=== PATIENT | male | born 2000 | race Caucasian/White ===

== ENCOUNTER 2021-09-29 10:25 | Emergency (ER) | payer BC ==
[2021-09-29] MEDS ORDERED: Cortisporin Eye Drops OP ONE (10:47)
--- NOTE | 2021-09-29 10:52 | ERPHSYRPT ---
- History of Present Illness Time Seen by Provider: 09/29/21 10:48 Source: patient, family Exam Limitations: no limitations Patient Subjective Stated Complaint: Left eye injury Triage Nursing Assessment: Patient ambulated into ED and transferred self to bed. Patient A+O x3. Patient's skin pink, warm and dry. Patient complains of left eye injury. 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 Patient states he feels like something is in left eye. Scerla noted to bed red with eyelid swollen. A small particle noted in the color part of left eye. Physician History: Patient complains of left eye injury. 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 Patient states he feels like something is in left eye. Sclera noted to bed red with eyelid swollen. A small particle noted in the color part of left eye. Timing/Duration: yesterday Location: left eye Severity: mild Apparent Injury: no Associated Symptoms: pain, sensitivity to light, redness, foreign body se nsation, No eyelid swelling, No double vision Visual Assistive Devices: None Chemical Exposure: No Trauma: No Welding Arc/Tanning Bed Exposure: Yes Allergies/Adverse Reactions: cefaclor [From [facility]] Allergy (Verified 09/29/21 10:35) Home Medications: No Reportable Medications [No Reported Medications] 09/29/21 [History] Hx Influenza Vaccination/Date Given: No Hx Pneumococcal Vaccination/Date Given: No Immunizations Up to Date: Yes Travel Risk - International Travel Have you traveled outside of the country in past 3 weeks: No - Coronavirus Screening Are you exhibiting any of the following symptoms?: No Close contact with a COVID-19 positive Pt in past 14-21 Days: No - Vaccine Status Have you recieved a Covid-19 vaccination: No - Review of Systems Constitutional: No Symptoms Eyes: Eye Redness, Photophobia, Foreign Body Sensation Ears, Nose, & Throat: No Symptoms Respiratory: No Symptoms Cardiac: No Symptoms Abdominal/Gastrointestinal: No Symptoms Genitourinary Symptoms: No Symptoms Musculoskeletal: No Symptoms - Past Medical History Pertinent Past Medical History: No Neurological History: No Pertinent History ENT History: No Pertinent History Cardiac History: No Pertinent History Respiratory History: No Pertinent History Endocrine Medical History: No Pertinent History Musculoskeletal History: No Pertinent History GI Medical History: No Pertinent History History: No Pertinent History Psycho-Social History: No Pertinent History Male Reproductive Disorders: No Pertinent History - Past Surgical History Past Surgical History: No Neuro Surgical History: No Pertinent History Cardiac: No Pertinent History Respiratory: No Pertinent History Gastrointestinal: No Pertinent History Genitourinary: No Pertinent History Musculoskeletal: No Pertinent History Male Surgical History: No Pertinent History - Social History Smoking Status: Never smoker Exposure to second hand smoke: No Drug Use: none Patient Lives Alone: No - Nursing Vital Signs Nursing Vital Signs: Initial Vital Signs Temperature 97.9 F 09/29/21 10:36 Pulse Rate 82 09/29/21 10:36 Respiratory Rate 18 09/29/21 10:36 Blood Pressure 158/104 09/29/21 10:36 O2 Sat by Pulse Oximetry 98 09/29/21 10:36 Pain Scale Pain Intensity 0 - Physical Exam General Appearance: no apparent distress Vision Acuity Degree Evaluation Phase: Corrected Vision Acuity Right Eye: 20/30 Vision Acuity Left Eye: 20/70 Intraocular Pressure (Tonopen): left Eye Exam: left eye: corneal abrasion, bilateral eye: PERRL, EOMI Ears, Nose, Throat Exam: normal ENT inspection Neck Exam: normal inspection Respiratory Exam: normal breath sounds Cardiovascular Exam: regular rate/rhythm SpO2: 98 - Course Nursing assessment & vital signs reviewed: Yes - Progress Progress: unchanged Counseled pt/family regarding: diagnosis, need for follow-up - Departure Departure Disposition: Home Clinical Impression: Foreign body in cornea, left eye, initial encounter Condition: Stable Critical Care Time: No Instructions: Foreign Body in Eye (DC) Additional Instructions: Follow-up with your eye doctor on Friday. Use these eyedrops which has been provided to you every 4 hours. It is very important that you see your eye doctor on Friday without fail. Discharge/Care Plan ELAINA OVIEDO was seen on 09/29/21 in the Emergency Room. The patient was counseled regarding Diagnosis,Lab results, Imaging studies, need for follow up and when to return to the Emergency Room. Prescriptions given: Discharge Note I have spoken with the patient and/or caregivers. I have explained the patient's condition, diagnosis and treatment plan based on the information available to me at this time. I have answered the patient's and/or caregiver's questions and addressed any concerns. The patient and/or caregivers have as good understanding of the patient's diagnosis, condition and treatment plan as can be expected at this point. The vital signs have been stable. The patient's condition is stable and appropriate for discharge from the emergency department. The patient will pursue further outpatient evaluation with the primary care physician or other designated or consulting physician as outlined in the dis charge instructions. The patient and/or caregivers are agreeable to this plan of care and follow-up instructions have been explained in detail. The patient and/or caregivers have received these instruction. The patient/and or caregivers are aware that any significant change in condition or worsening of symptoms should prompt an immediate return to this or the closest emergency department or call 911. ELAINA OVIEDO was seen on 09/29/21 n the Emergency Room. At that time you were treated for an emergent condition, during your visit Laboratory, Radiology and/or other procedures may have been ordered. It is very important that you follow-up with your Primary Care Physician within the next 24-48 hours to review your Emergency Room visit and the final results of testing that was ordered. Some test results such as Urine Cultures, Blood Cultures, and other cultures if ordered will not be finalized for 24-48 hours. If you do not have a Primary Care Provider please call the medical records department at [phone] to obtain a copy of your results or you may sign into our patient portal to obtain these results by visiting us @ [email or web address] and completing the following steps: 1. Click on the Patient Portal link 2. Click the Patient Self Enrollment Link to complete the enrollment form and entering your 3. Once the enrollment form is completed you will receive an email with a temporary ID and password at the email address you provided. 4. Next choose a user name and password. Your user name must be at least 4 characters long and your password must be at least 4 characters long. 5. Choose a security question from the list and provide your answer to the question. If you already have signed into the Health Portal you may access your Health Care Information 18/11 by the following steps: 1. Login to our website @ [email or web address] 2. Enter your original user name and password. FAQS The [facility] Health Portal is an online tool that contains your Lab Results, Radiology Reports, Visit History, Discharge Instructions and Health Summary Lab and Radiology Results will not be available for 72 hours on the portal. The Portal is a secure site, passwords are encryted and URLs are re-written so they cannot be copied and pasted. You and authorized family members are the only ones who can access your Portal. Also there is a timeout feature that protects your information if you leave the Portal page open. If you have technical difficulty please use the Contact Us link on the page this will allow you to submit any questions you have regarding the Portal or you may contact the Medical Record Department at [phone] ext [phone]. Cortisporin eye drops 2 drops in left eye every 4 hours
[2021-09-29 11:03] VITALS: BP 158/104; PULSE 82; O2SAT 98
== END 2021-09-29 11:04 | disposition home or self-care (01) ==
LOC: ED 10:25
DX: T15.02XA Foreign body in cornea, left eye, initial encounter (principal); H53.142 Visual discomfort, left eye; Z28.310 Unvaccinated for COVID-19
CPT/HCPCS: 99283; A9270-GY